=== PATIENT | female | born 1955 | race African-American/Black ===

== ENCOUNTER 2021-08-28 04:11 | Emergency (ER) | payer MEDICAID ==
[~2021-08-28] VITALS: Ht 162.6 cm; Wt 135.0 kg
--- NOTE | 2021-08-28 05:00 | PHYS DOC ---
Past Medical History Past Medical History: A-Fib, Hypertension Past Surgical History: Other General Adult EDM: Chief Complaint: DIZZY/LIGHT HEADED HPI: HPI: Patient is a 66 year old female with history of A. fib on apixaban who presents with sinus congestion for the past week and some occasional dizziness. She complains of a sensation of room spinning. Started at 9 AM yesterday morning. States that it comes on for 1 to 2 seconds at a time and then dissipates entirely. No triggering factors identified. Has happened approximately 5 times throughout the day. No associated shortness of breath or chest pain. No sensation of presyncope. She does complain of intermittent ear discomfort bilaterally, left greater than right. She stuffs cotton balls in her ears to try to help. Denies any additional neurologic symptoms such as diplopia, hoarse voice, speech difficulty, numbness, tingling, or difficulty with coordination/walking. Review of Systems: Review of Systems: Constitutional: Denies fever or chills. [] Eyes: Denies change in visual acuity. [] HENT: Denies nasal congestion or sore throat. [] Respiratory: Denies cough or shortness of breath. [] Cardiovascular: Denies chest pain or edema. [] GI: Denies abdominal pain, nausea, vomiting, bloody stools or diarrhea. [] : Denies dysuria. [] Musculoskeletal: Denies back pain or joint pain. [] Integument: Denies rash. [] Neurologic: Reports intermittent dizziness. Denies headache, focal weakness or sensory changes. [] Endocrine: Denies polyuria or polydipsia. [] Lymphatic: Denies swollen glands. [] Psychiatric: Denies depression or anxiety. [] Heart Score: C/O Chest Pain: No Allergies: Allergies: Allergies Coded Allergies Type Severity Reaction Last Updated Verified No Known Drug Allergies 08/28/21 No Physical Exam: PE: Constitutional: Well developed, well nourished, no acute distress, non-toxic appearance. [] HENT: Normocephalic, atraumatic, bilateral external ears normal, oropharynx moist, no oral exudates, nose normal. [] Eyes: PERRLA, EOMI, conjunctiva normal, no discharge. [] Neck: Normal range of motion, no tenderness, supple, no stridor. [] Cardiovascular:Heart rate regular rhythm, no murmur [] Lungs & Thorax: Bilateral breath sounds clear to auscultation [] Abdomen: Bowel sounds normal, soft, no tenderness, no masses, no pulsatile m asses. [] Skin: Warm, dry, no erythema, no rash. [] Back: No tenderness, no CVA tenderness. [] Extremities: No tenderness, no cyanosis, no clubbing, ROM intact, no edema. [] Neurologic: (Not currently experiencing dizziness). Alert, oriented to person, place, time. Face is symmetric. Speech is normal. No nystagmus. Cranial nerves III-XII intact. 5/5 strength in bilateral upper and lower extremities in all dermatomes. No dysmetria with [id number]-jn-minj or evsu-fz-ihjm testing. Gait is stable. Psychologic: Affect normal, judgement normal, mood normal. [] Current Patient Data: Vital Signs: Vital Signs Date Time Temp Pulse Resp B/P (MAP) Pulse Ox O2 Delivery O2 Flow Rate FiO2 08/28/21 04:28 97.7 88 18 130/71 (90) 99 97.7 EKG: EKG: A. fib. Rate 96. Patient with frequent movement, difficult to interpret. PVCs. [] Radiology/Procedures: Radiology/Procedures: [] Course & Med Decision Making: Course & Med Decision Making Pertinent Labs and Imaging studies reviewed. (See chart for details) Patient is 66-year-old female with history of A. fib on apixaban who presents with intermittent 1-2-second episodes of dizziness/vertigo without clear trigger. She has no additional neurologic symptoms, and is currently neurologically intact. Given the intermittent nature, this is not consistent with stroke/central vertigo. She does have wax occluding bilateral TMs, that may be contributing to her disequilibrium. Advised that she try Debrox solution to try to loosen earwax. Given phone number for ENT for potential follow-up if symptoms persist. She also complains of a week of sinus congestion. Will check a Covid test. We will check a BMP to ensure no electrolyte abnormality contributing to her symptoms. If unremarkable feel she can likely be discharged with PCP follow up. -- Labs with only mild hypokalemia 3.1. Given 40 meq PO here. Will give short course of potassium supplement and ask that she f/u with her PCP. 05Kamila Marquez Disclaimer: Jimmy Disclaimer: This electronic medical record was generated, in whole or in part, using a voice recognition dictation system. Departure Departure Impression: Primary Impression: Impacted cerumen of both ears Additional Impressions: Intermittent vertigo Hypokalemia Disposition: HOME / SELF CARE / HOMELESS Condition: STABLE Referrals: KARO PERRY MD Call if ear symptoms persist. You may need a PCP referral. Additional Instructions: Your labs and exam are reassuring. Your potassium was very slightly low. Please picker tender helper the three days of potassium supplements I prescribed for you. Take the first tab tomorrow. Please follow-up with your PCP. You did have your wax pressing against your eardrums on both sides which may be contributing her symptoms. Try Debrox [id number] ear solution to loosen the earwax. You may need to follow-up with an ENT to get the earwax thoroughly removed. Please see the attached number for Dr. Perry, a local ENT. You may need a PCP referral to schedule an appointment with them. You can call their office to see if this is the case. Scripts Potassium Chloride (Klor-Con 10) 10 Meq Tablet.er 10 MEQ PO DAILY for 3 Days, #3 TAB.SR 0 Refills Prov: BALJEET LOPEZ MD 08/28/21 BALJEET LOPEZ MD Aug 28, 2021 05:00
[2021-08-28 05:32] LABS: CALCIUM 8.7 mg/dL (8.5-10.1); CREATININE 0.7 mg/dL (0.6-1.0); GFR 83.5; POTASSIUM 3.1 mmol/L (3.5-5.1)
[2021-08-28] MEDS ORDERED: POTASSIUM CHLORIDE 20 MEQ TABLET.ER. PO ONE (05:45)
[2021-08-28] MEDS ORDERED: POTA10TA6 PO (05:46)
[2021-08-28 06:00] VITALS: BP 152/82
--- NOTE | 2021-08-28 17:57 | NUR ---
IP: Informed pt of negative covid test. Pt verbalized understanding.
== END 2021-08-28 06:10 | disposition home or self-care (01) ==
LOC: ER 04:11
DX: H61.23 Impacted cerumen, bilateral (principal); E87.6 Hypokalemia; I10 Essential (primary) hypertension; Z20.822 Contact with and (suspected) exposure to COVID-19
CPT/HCPCS: 36415; 80048; 87426; 99283; U0003; U0005